=== PATIENT | male | born 1975 | race African-American/Black ===

== ENCOUNTER 2017-03-13 06:12 | Emergency (ER) | payer OTHER ==
[2017-03-13 06:38] VITALS: TEMP 98.4; O2SAT 98
--- NOTE | 2017-03-13 06:58 | EDPHY ---
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 He thinks a small amount of blood may have touched his lip and gone into his mouth. He was wearing safety glasses. REVIEW OF SYSTEMS Constitutional: No fever, no chills. Eyes: No discharge. 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 PHYSICAL General Appearance: Alert, no distress ENT, Mouth: Mucous membranes moist Respiratory: breathing comfortably Skin: Warm and dry, no rashes Psychiatric: Patient is oriented X 3, there is no agitation Source: Patient Exam Limitations: No limitations - Personal History Current Tetanus/Diphtheria Vaccine: Yes Current Tetanus Diphtheria and Acellular Pertussis (TDAP): Yes - Medical/Surgical History Hx Asthma: No Hx Chronic Respiratory Disease: No Hx Diabetes: No Hx Cardiac Disease: No Hx Renal Disease: No Hx Cirrhosis: No Hx Alcoholism: No Hx HIV/AIDS: No Hx Splenectomy or Spleen Trauma: No Other PMH: HTN - Social History Smoking Status: Never smoked Constitutional: Initial Vital Signs Temperature (C) 36.9 C 03/13/17 06:15 Heart Rate 59 L 03/13/17 06:15 Respiratory Rate 18 03/13/17 06:15 Blood Pressure 151/104 H 03/13/17 06:15 O2 Sat (%) 98 03/13/17 06:15 O2 Delivery Mode Room Air Allergies/Adverse Reactions: No Known Allergies Allergy (Unverified 03/13/17 06:38) Home Medications: Medication Instructions Recorded Amlodipine Besylate [Norvasc] 5 mg PO 03/13/17 Medical Decision Making Differential Diagnosis: This is a 41-year-old healthy man who presents 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 Plan to follow post exposure guidelines. We have drawn the patient's blood and the blood of the source patient. He is to follow up with worker's Comp. Departure - Departure Disposition: Home, Routine, Self-Care Clinical Impression: Exposure to blood Condition: Good Instructions: Postexposure Prophylaxis (ED), Body Substance Exposure (ED) Additional Instructions: Please follow-up through your Worker's Comp. You should return to the ER if your worse in any way. Referrals: NONE *PRIMARY CARE P,. [Primary Care Provider] - As per Instructions
[2017-03-13 07:22] VITALS: BP 149/100; PULSE 66; RESP 16
== END 2017-03-13 07:17 | disposition home or self-care (01) ==
DX: Z77.21 Contact with and (suspected) exposure to potentially hazardous body fluids (principal); I10 Essential (primary) hypertension
CPT/HCPCS: G0472